=== PATIENT | female | born 1995 | race Caucasian/White ===

== ENCOUNTER 2017-08-25 21:19 | Emergency (ER) | payer OTHER ==
[2017-08-25] MEDS ORDERED: NORMAL SALINE 1000 ML 1,000 ML IV ONE (22:59)
--- NOTE | 2017-08-25 23:02 | ER Document Report ---
ED General - General Chief Complaint: Allergic Reaction Stated Complaint: POSSIBLE ALLERGIC REACTION Time Seen by Provider: 08/25/17 21:51 Notes: Patient is a 22-year-old female with a past history of multiple sclerosis who presents with multiple complaints. Patient states that since taking Bactrim at approximately noon today she has developed diffuse body aches, headache, nausea , abdominal cramping, chest tightness, and felt generally unwell. She states that the symptoms started gradually and have been persistent since that time. Nothing improves or worsens her symptoms. She denies a history of similar symptoms in the past. She denies any urticarial lesions, vomiting, diarrhea, syncope, wheezing or stridor. She has not seen her general doctor regarding these concerns. She is uncertain of whether or not she has taken Bactrim in the past. TRAVEL OUTSIDE OF THE [place] IN LAST 30 DAYS: No Past Medical History - General Information source: Patient - Social History Smoking Status: Never Smoker Frequency of alcohol use: None Drug Abuse: None Lives with: Spouse/Significant other Family History: Reviewed & Not Pertinent Review of Systems - Review of Systems Notes: Constitutional: Negative for fever. HENT: Negative for sore throat. Eyes: Negative for visual changes. Cardiovascular: Negative for chest pain. Respiratory: Positive for shortness of breath. Gastrointestinal: Positive for abdominal cramping Genitourinary: Negative for dysuria. Musculoskeletal: Positive for diffuse body pain Skin: Negative for rash. Neurological: Negative for headaches, weakness or numbness. 10 point ROS negative except as marked above and in HPI. Physical Exam - Vital signs Vitals: Temp Pulse Resp BP Pulse Ox 99.1 F 115 H 20 104/58 L 100 08/25/17 21:33 08/25/17 21:33 08/25/17 21:33 08/25/17 21:33 08/25/17 21:33 Interpretation: Tachycardic Notes: PHYSICAL EXAMINATION: GENERAL: Well-appearing, well-nourished and in no acute distress. HEAD: Atraumatic, normocephalic. EYES: Pupils equal round and reactive to light, extraocular movements intact, sclera anicteric, conjunctiva are normal. ENT: nares patent, oropharynx clear without exudates. Dry mucous membranes. NECK: Normal range of motion, supple without lymphadenopathy LUNGS: Breath sounds clear to auscultation bilaterally and equal. No wheezes rales or rhonchi. HEART: Regular rate and rhythm without murmurs ABDOMEN: Soft, nontender, normoactive bowel sounds. No guarding, no rebound. No masses appreciated. EXTREMITIES: Normal range of motion, no pitting or edema. No cyanosis. NEUROLOGICAL: No focal neurological deficits. Moves all extremities spontaneously and on command. PSYCH: Anxious. SKIN: Warm, Dry, normal turgor, diffuse sunburn Course - Re-evaluation Re-evalutation: 08/25/17 22:59 Patient presents with multiple vague complaints that did not appear to be concerning for any acute life-threatening pathology. Vitals are within normal limits at triage and at time of discharge. Physical examination is unremarkable. Patient has tolerated oral intake without difficulty. Patient was not noted to be in distress at any point during their ER visit. At this time, based on the reassuring evaluation, I do not suspect an acute MS, pulmonary embolus, aortic dissection, acute intra-abdominal pathology, stroke, or sepsis.Will discharge with return precautions and follow-up recommendations. Verbal discharge instructions given a the bedside and opportunity for questions given. Medication warnings reviewed. Patient is in agreement with this plan and has verbalized understanding of return precautions and the need for primary care follow-up in the next 24-72 hours. - Vital Signs Vital signs: Temp Pulse Resp BP Pulse Ox 98.9 F 100 16 121/70 100 08/26/17 01:58 08/26/17 01:58 08/26/17 01:58 08/26/17 01:58 08/26/17 01:58 - Laboratory Result Diagrams: 08/25/17 23:30 Laboratory results interpreted by me: 08/25/17 23:30 Chloride 109 H Carbon Dioxide 20 L Discharge - Discharge Clinical Impression: Adverse reaction to antibiotic, Dehydration, Multiple complaints Condition: Good Disposition: HOME, SELF-CARE Additional Instructions: Please return to the emergency room immediately if you experience any concerning symptoms including high fevers, severe headache, chest pain, difficulty breathing, abdominal pain, slurred speech, numbness or weakness in your arms or legs, or any other symptom that concerns you.
[2017-08-25 23:41] LABS: APPEARANCE,URINE CLEAR; BILIRUBIN,URINE NEGATIVE (NEGATIVE); COLOR,URINE YELLOW; GLUCOSE, URINE NEGATIVE (NEGATIVE); KETONES,URINE NEGATIVE (NEGATIVE); LEUKOCYTE ESTERASE,URINE NEGATIVE (NEGATIVE); NITRITE,URINE NEGATIVE (NEGATIVE); PROTEIN,URINE NEGATIVE (NEGATIVE); URINE SPECIFIC GRAVITY 1.006; UROBILINOGEN,URINE NEGATIVE mg/dL (<2.0)
[2017-08-26 00:31] LABS: ANION GAP 10 (5-19); BLOOD UREA NITROGEN 10 mg/dL (7-20); CALCIUM 9.5 mg/dL (8.4-10.2); CARBON DIOXIDE 20 mmol/L (22-30); CHLORIDE 109 mmol/L (98-107); GLUCOSE 100 mg/dL (75-110); POTASSIUM 3.7 mmol/L (3.6-5.0); SODIUM 139.4 mmol/L (137-145)
[2017-08-26 02:00] VITALS: BP 121/70
== END 2017-08-26 01:58 | disposition home or self-care (01) ==
LOC: ER 21:19
DX: T37.0X5A Adverse effect of sulfonamides, initial encounter (principal); E86.0 Dehydration; R51 Headache; M79.1 Myalgia; R11.0 Nausea; G35 Multiple sclerosis
CPT/HCPCS: 99283; 96360; 36415; 80048; 81001; J7030

== ENCOUNTER 2018-05-02 13:44 | Emergency (ER) | payer OTHER ==
--- NOTE | 2018-05-02 16:04 | ER Document Report ---
ED Medical Screen (RME) - General Chief Complaint: Other Stated Complaint: POSSIBLE MS RELAPSE Time Seen by Provider: 05/02/18 15:56 TRAVEL OUTSIDE OF THE [place] IN LAST 30 DAYS: No - HPI Notes: 05/02/18 15:57 32-year-old female with a history of MS presents to have a "sunburn-like sensation" with numbness and tingling down her right side for the last that has made her concerned. Patient states she was seen by her primary care office who referred her to her neurologist however cannot until 17 May which he feels too long for evaluation. Denies any new medications, travel or new foods. Denies any rashes. Vaccinations are up-to-date. Patient does have an IUD. Denies fevers, chills, chest pain,palpitations, shortness of breath, dyspnea, nausea, vomiting, diarrhea, abdominal pain, hematuria, speech changes, LH, dizziness, syncope, headaches, neck pain, weakness, bowel or bladder dysfunction, saddle anesthesia, nmuscle paralysis, weakness in bilateral upper or lower extremities equally or rash. patient weepy when speaking. I have greeted and performed a rapid initial assessment of this patient. A comprehensive ED assessment and evaluation of the patient, analysis of test results and completion of medical decision making process will be conducted by an additional ED providers. 05/02/18 16:04 - Related Data Allergies/Adverse Reactions: No Known Allergies Allergy (Unverified 05/02/18 13:54) Past Medical History Renal/ Medical History: Denies: Hx Peritoneal Dialysis Physical Exam - Vital signs Vitals: Temp Pulse Resp BP Pulse Ox 98.4 F 71 16 119/79 100 05/02/18 13:57 05/02/18 13:57 05/02/18 13:57 05/02/18 13:57 05/02/18 13:57 - Neurological Neuro grossly intact: Yes Orientation: AAOx4 Freida Coma Scale Verbal: Oriented [place] Coma Scale Motor: Obeys Commands Speech: Normal Cranial nerves: Normal Motor strength normal: LUE, RUE, LLE, RLE - Strength 5 out of 5 bilateral upper and lower extremities Additional motor exam normals: Equal speed operator. No: Pronator drift, Weakness Course - Vital Signs Vital signs: Temp Pulse Resp BP Pulse Ox 98.4 F 71 16 119/79 100 05/02/18 13:57 03/14/19 13:57 05/02/18 13:57 05/02/18 13:57 05/02/18 13:57
[2018-05-02 16:36] LABS: ABSOLUTE EOSINOPHILS # (AUTO) 0.2 10^3/uL (0.0-0.6); ABSOLUTE LYMPHOCYTES (AUTO) 0.3 10^3/uL (0.5-4.7); ABSOLUTE MONOCYTES (AUTO) 0.4 10^3/uL (0.1-1.4); BASOPHILS % (AUTO) 0.3 % (0-2); EOSINOPHILS % (AUTO) 3.9 % (0-6); HEMATOCRIT 40.1 % (36.0-47.0); HEMOGLOBIN 14.2 g/dL (12.0-15.5); LYMPHOCYTES % (AUTO) 7.5 % (13-45); MEAN CORPUSCULAR HEMOGLOBIN 30.2 pg (27.0-33.4); MEAN CORPUSCULAR HGB CONC 35.3 g/dL (32.0-36.0); MEAN CORPUSCULAR VOLUME 85 fl (80-97); MONOCYTES % (AUTO) 11.1 % (3-13); PLATELET COUNT 250 10^3/uL (150-450); RED BLOOD COUNT 4.69 10^6/uL (3.72-5.28); RED CELL DISTRIBUTION WIDTH 12.4 % (11.5-14.0); SEGMENTED NEUTROPHILS % (AUTO) 77.2 % (42-78); TOTAL CELLS COUNTED % (AUTO) 100 %; WHITE BLOOD COUNT 3.9 10^3/uL (4.0-10.5)
[2018-05-02 16:41] LABS: APPEARANCE,URINE SLIGHTLY-CLOUDY; BILIRUBIN,URINE NEGATIVE (NEGATIVE); COLOR,URINE YELLOW; GLUCOSE, URINE NEGATIVE (NEGATIVE); KETONES,URINE NEGATIVE (NEGATIVE); LEUKOCYTE ESTERASE,URINE NEGATIVE (NEGATIVE); NITRITE,URINE NEGATIVE (NEGATIVE); PROTEIN,URINE NEGATIVE (NEGATIVE); URINE SPECIFIC GRAVITY 1.014; UROBILINOGEN,URINE NEGATIVE mg/dL (<2.0)
[2018-05-02 16:59] LABS: ALANINE AMINOTRANSFERASE 38 U/L (9-52); ALBUMIN 4.9 g/dL (3.5-5.0); ALKALINE PHOSPHATASE 60 U/L (38-126); ANION GAP 12 (5-19); ASPARTATE AMINO TRANSFERASE 21 U/L (14-36); BILIRUBIN,DIRECT 0.1 mg/dL (0.0-0.4); BILIRUBIN,TOTAL 0.3 mg/dL (0.2-1.3); BLOOD UREA NITROGEN 12 mg/dL (7-20); CARBON DIOXIDE 27 mmol/L (22-30); CHLORIDE 104 mmol/L (98-107); GLUCOSE 87 mg/dL (75-110); POTASSIUM 3.6 mmol/L (3.6-5.0); SODIUM 143.1 mmol/L (137-145); TOTAL PROTEIN 7.5 g/dL (6.3-8.2)
--- NOTE | 2018-05-02 17:28 | ER Document Report ---
Addendum entered and electronically signed by TAN WELLS PA-C 05/03/18 14:47: Course - Re-evaluation Re-evalutation: 05/03/18 14:43 I called [facility] and spoke with Dr. Mckeon, Neuro, for possible other options and review of her current imaging and treatment. Dr. Mckeon states that she should wait for a bed as outpatient infusions can be difficult to obtain and most likely would not get it approved now when she needs it actively. She recommends that the patient stay in our ED until a bed opens up for transfer. She does not recommend transfer ED to ED at this time. Recommends continued daily infusions of solumedrol for 3-5 days total treatment. Our social services analyst, Silvestre, and Dr. Souza have been involved in this patient today prior to my arrival and state that the patient is willing to wait. This information was then relayed to Silvestre. - Vital Signs Vital signs: Temp Pulse Resp BP Pulse Ox 97.5 F 57 L 16 117/56 L 98 05/03/18 07:07 05/03/18 07:07 05/03/18 07:07 05/03/18 07:07 05/03/18 07:07 - Laboratory Result Diagrams: 05/02/18 16:12 05/02/18 16:12 Laboratory results interpreted by me: 05/02/18 16:12 WBC 3.9 L Lymphocytes % 7.5 L Absolute Lymphocytes 0.3 L Original Note: ED General - General Chief Complaint: Other Stated Complaint: POSSIBLE MS RELAPSE Time Seen by Provider: 05/02/18 15:56 TRAVEL OUTSIDE OF THE [place] IN LAST 30 DAYS: No - HPI Notes: Patient is a 22-year-old female with a history of multiple sclerosis who presents to the emergency department complaining of burning, decreased sensation to the right lower extremity and also involves the right side of her back to the mid thoracic area. Patient states that she does not have any new injury. She has not had any recent illness. The burning and symptoms have been consistent for the last week and a half. She does not that on occasion when she looks left to right that she will develop double vision which is also newer for her, but no issues with vision at this time. Patient states that she did call her neurologist office and they recommended that she come to the emergency department for evaluation as she has not yet been seen by them to establish as she recently moved back to the area. She has otherwise been eating and drinking without difficulty. She is urinating normally and having normal bowel movements. She is able to ambulate without difficulties. Denies drug allergies or IV drug abuse. She does take Gilenya (x2yrs) and her MS is relapsing remitting. Denies any headache, fever, neck pain, changes in speech/mentation/hearing, URI, sore throat, chest pain, palpitations, syncope, cough, shortness of breath, wheeze, dyspnea, abdominal pain, nausea/vomiting/diarrhea, urinary retention, dysuria, hematuria, loss of control of bowel or bladder, saddle anesthesia, muscle paralysis/weakness, or rash. - Related Data Allergies/Adverse Reactions: No Known Allergies Allergy (Unverified 05/02/18 13:54) Past Medical History - Social History Smoking Status: Former Smoker Frequency of alcohol use: None Drug Abuse: None Family History: Reviewed & Not Pertinent Patient has suicidal ideation: No Patient has homicidal ideation: No Renal/ Medical History: Denies: Hx Peritoneal Dialysis Review of Systems - Review of Systems -: Yes All other systems reviewed and negative Physical Exam - Vital signs Vitals: Temp Pulse Resp BP Pulse Ox 98.4 F 71 16 119/79 100 05/02/18 13:57 05/02/18 13:57 05/02/18 13:57 05/02/18 13:57 05/02/18 13:57 - Notes Notes: PHYSICAL EXAMINATION: GENERAL: Well-appearing, well-nourished and in no acute distress. A&Ox4. Answers questions appropriately. HEAD: Atraumatic, normocephalic. Non-tender. EYES: Pupils equal round and reactive to light, extraocular movements intact, sclera anicteric, conjunctiva are normal. No nystagmus. Vis devine intact currently. ENT: EAC clear b/l. TM's intact b/l without erythema, fluid, or perforation. Nares patent and without discharge. oropharynx clear without exudates. No tonsilar hypertrophy or erythema. Moist mucous membranes. No sinus tenderness. NECK: Normal range of motion, supple without lymphadenopathy. No rigidity/meningismus. No midline tenderness. LUNGS: Breath sounds clear to auscultation bilaterally and equal. No wheezes rales or rhonchi. HEART: Regular rate and rhythm without murmurs, rubs, gallops. ABDOMEN: Soft, nontender, nondistended abdomen. No guarding, no rebound. Normal bowel sounds present. No CVA tenderness bilaterally. Musculoskeletal: Ext's b/l: FROM to passive/active. Strength 5+/5. No deficits noted. No bony tenderness of extremities. Extremities: No cyanosis, clubbing, or edema b/l. Peripheral pulses 2+. Capillary refill less than 2 seconds. NEUROLOGICAL: NIH 0. GCS 15. Cranial nerves grossly intact. Normal speech, normal gait. Normal sensory, motor exams. Reflexes 2+ on the left patellar/achilles and 1+ left patellar, 1-2+ left achilles. EAN's negative. Pronator drift negative. Heel/henson, finger/nose wnl. Clonus neg b/l. PSYCH: Normal mood, normal affect. SKIN: Warm, Dry, normal turgor, no rashes or lesions noted. Course - Re-evaluation Re-evalutation: 05/02/18 17:20 Patient is an afebrile, well-hydrated, 22-year-old female who presents for possible MS flare. Vitals are currently acceptable without significant tachycardia, tachypnea, or hypoxia. PE is grossly unremarkable aside from the subjective decrease in sensation to the right lower extremity versus the left and objective finding of slight decrease in reflexes of the right lower extremity versus the left. Otherwise she appears nontoxic and is tolerating p.o. without difficulty. CBC, CMP, urinalysis, hCG unremarkable. I did speak with my attending, Dr. Souza, who recommends consult with Neurology. I then spoke with álvaro for consult who will call me back when they reach a neurologist. 05/02/18 17:[address] Limon, Neuro [facility], who recommends MRI head/thoracic, and start Solumedrol 1g IV. I did review with him that if the patient cannot be accepted to our hospital due to not having neurology double end tenoner setter if he would be willing to accept for transfer which she has agreed to. I reviewed that I will call him back and let him know as soon as I talk to our hospitalist. 05/02/18 17:38 I spoke with our hospitalist, Dr. Alaniz, who states that this patient needs neurology and recommends transfer. I then called [facility] back and spoke with a switchboard to let them know that we would like to pursue with transfer and she will notify Dr. Limon back and let him know about the transfer and that we will start the MRI/Solumedrol here in the ED as there may be a wait time for a bed. Patient is currently in agreement with this plan. - Vital Signs Vital signs: Temp Pulse Resp BP Pulse Ox 98.4 F 71 16 119/79 100 05/02/18 13:57 05/02/18 13:57 05/02/18 13:57 05/02/18 13:57 05/02/18 13:57 - Laboratory Result Diagrams: 05/02/18 16:12 05/02/18 16:12 Laboratory results interpreted by me: 05/02/18 16:12 WBC 3.9 L Lymphocytes % 7.5 L Absolute Lymphocytes 0.3 L Discharge - Discharge Clinical Impression: Multiple sclerosis exacerbation Condition: Stable Disposition: [facility]
[2018-05-02] MEDS ORDERED: METHYLPREDNISOLONE INJ 1000 MG VIAL IV ONE (17:39)
--- NOTE | 2018-05-02 20:51 | RADIOLOGY REPORT (SQ) ---
MR THORACIC SPINE WITHOUT THEN WITH IV CONTRAST HISTORY: Evaluate for multiple sclerosis flare. COMPARISON: None. TECHNIQUE: Multiplanar, multisequence MR imaging of the thoracic spine was performed without and with the administration of intravenous gadolinium. FINDINGS: The visualized spinal cord is of normal caliber and signal intensity. No abnormal cord enhancement is identified. There is abnormally decreased T1 bone marrow signal, likely representing prominent hematopoietic marrow, which may be due to smoking, obesity, or anemia. The alignment of the thoracic spine is normal on these supine, neutral images. No disc protrusion throughout the thoracic spine. No canal or foraminal narrowing throughout the thoracic spine. The visualized intra-abdominal structures are unremarkable. IMPRESSION: 1. No abnormal enhancement in the thoracic spine. 2. Prominent hematopoietic marrow, which may be due to smoking, obesity, or anemia.
--- NOTE | 2018-05-02 20:59 | RADIOLOGY REPORT (SQ) ---
EXAM DESCRIPTION: MR BRAIN WITHOUT THEN WITH IV CONTRAST COMPLETED DATE/TME: 05/02/2018 17:36 CLINICAL HISTORY: possible MS flare COMPARISON: None TECHNIQUE: Multiplanar images of the brain were obtained with and without the administration of intravenous contrast FINDINGS: Ventricles and sulci are within normal limits for the patient's age. No midline shift or mass effect. There are multiple areas of abnormal signal consistent with known diagnosis of multiple sclerosis. This includes subcortical lesions in the left parietal lobe, left periventricular white matter, left midbrain, right occipital white matter and right centrum semiovale. Abnormal signal also noted along the right aspect of the corpus callosum and in segments of the right frontal lobe. There is subtle restricted diffusion around the lesion in the corpus callosum and along the left parietal periventricular lesion. On the postcontrast imaging there is enhancement of the lesion in the left midbrain, left parietal lesions on image 19 and 16. Abnormal enhancement in the right occipital lobe on image 12. Venous sinuses appear to enhance normally. IMPRESSION: NUMEROUS AREAS OF ABNORMAL SIGNAL CONSISTENT WITH KNOWN DIAGNOSIS OF MULTIPLE SCLEROSIS. SEVERAL OF THESE ENHANCE ON THE POSTCONTRAST SEQUENCE CONSISTENT WITH ACTIVE PLAQUES
[2018-05-03] MEDS ORDERED: METHYLPREDNISOLONE INJ 1000 MG VIAL IV ONE (17:55)
[2018-05-03 19:56] VITALS: BP 124/68
== END 2018-05-03 19:55 | disposition short-term general hospital (02) ==
LOC: ER 13:44
DX: G35 Multiple sclerosis (principal); R20.8 Other disturbances of skin sensation; Z87.891 Personal history of nicotine dependence
CPT/HCPCS: 99285; 96365; 96366; 36415; 85025; 81025; 80053; 81001; 70553; 72157; A9576; J2930 ×2

== ENCOUNTER → 2019-06-23 | Outpatient (CLI) | payer OTHER ==
--- NOTE | 2019-06-23 16:32 | RADIOLOGY REPORT (SQ) ---
EXAM DESCRIPTION: MRI HEAD COMBO IMAGES COMPLETED DATE/TIME: 06/23/2019 10:42 am REASON FOR STUDY: G35 MULTIPLE SCLEROSIS G35 MULTIPLE SCLEROSIS COMPARISON: 05/02/2018 TECHNIQUE: Multiplanar imaging includes noncontrasted T1, T2, FLAIR, diffusion with ADC map and post gadolinium contrast T1 sequences. Images stored on PACS. CONTRAST TYPE AND DOSE: 9 mL Prohance. RENAL FUNCTION: Not indicated. ACR Type II contrast agent associated with few, if any, unconfounded cases of NSF LIMITATIONS: None. FINDINGS: ANATOMY: No anomalies. Normal vascular flow voids. Pituitary fossa normal. CSF SPACES: Normal in size and contour. No hemorrhage. CEREBRUM: Several stable areas of abnormal signal in the periventricular white matter on FLAIR sequen ce. No new lesions. None of the lesions enhance. POSTERIOR FOSSA: No signal alteration. No hemorrhage. No edema, masses, or mass effect. Internal ankit tory canals, cerebellopontine angles, mastoids normal. No enhancing lesions. No abnormal enhancement post contrast. DIFFUSION IMAGING: Negative for acute or subacute infarction. ORBITS: No masses. Globes normal. PARANASAL SINUSES: No fluid levels. Mucosa normal. OTHER: No other significant finding. IMPRESSION: Quiescent white matter lesions. No evidence of active demyelination. EVIDENCE OF ACUTE STROKE: NO. TECHNICAL DOCUMENTATION: JOB ID: [id number] 2010 [email or web address]- All Rights Reserved Reading location - IP/workstation name: [email or web address]
--- NOTE | 2019-06-23 16:38 | RADIOLOGY REPORT (SQ) ---
EXAM DESCRIPTION: MRI CERVICAL SPINE COMBO IMAGES COMPLETED DATE/TIME: 06/23/2019 10:42 am REASON FOR STUDY: G35 MULTIPLE SCLEROSIS G35 MULTIPLE SCLEROSIS COMPARISON: None. TECHNIQUE: Sagittal and Axial imaging includes T1, T2, STIR and gradient echo sequences. T1 post carine olinium sequences. CONTRAST TYPE AND DOSE: 9.0 mL Prohance. RENAL FUNCTION: Not indicated. ACR Type II contrast agent associated with few, if any, unconfounded cases of NSF LIMITATIONS: None. FINDINGS: ALIGNMENT: Normal. VERTEBRAE: Intact. BONE MARROW: Normal. No marrow replacement or reactive changes. DISCS: Normal. No significant abnormal signal or loss of height. HARDWARE: None in the spine. CORD AND BASE OF BRAIN: Subtle areas of increased T2 signal in the cord at C3, series 7, image 8, and at C6 image 16 of series 7. SOFT TISSUES: No soft tissue masses. C1-C2: No significant spinal stenosis. C2-C3: No significant spinal stenosis or exit foraminal stenosis. C3-C4: No significant spinal stenosis or exit foraminal stenosis. C4-C5: No significant spinal stenosis or exit foraminal stenosis. C5-C6: No significant spinal stenosis or exit foraminal stenosis. C6-C7: No significant spinal stenosis or exit foraminal stenosis. C7-T1: No significant spinal stenosis or exit foraminal stenosis. UPPER THORACIC: Incompletely imaged. No significant spinal stenosis or exit foraminal stenosis. ENHANCEMENT: No abnormal enhancement. OTHER: No other significant finding. IMPRESSION: Subtle areas of inactive demyelination at C3 and C 6. No evidence of active demyelinati on. COMMENT: None. TECHNICAL DOCUMENTATION: JOB ID: [id number] [email or web address]- All Rights Reserved Reading location - IP/workstation name: [email or web address]
== END ==
LOC: RAD 09:11
PROVIDERS: ATTEND Psychiatry & Neurology Neurology
DX: G35 Multiple sclerosis (principal)
CPT/HCPCS: 70553; 72156; A9576